=== PATIENT | female | born 1940 | race African-American/Black ===

== ENCOUNTER 2019-08-27 17:40 | Inpatient (IN) | payer OTHER ==
[~2019-08-27] VITALS: Ht 167.6 cm; Wt 92.6 kg
[2019-08-27] MEDS ORDERED: ADENOSINE 3 MG/ML 2ML VIAL IV ONE (20:00)
[2019-08-27 20:07] LABS: HEMATOCRIT. 36.8 % (36.0-48.0); HEMOGLOBIN. 12.3 g/dL (12.0-16.0); MEAN CORPUSCULAR HEMOGLOBIN 29.9 pg (28.0-32.0); MEAN CORPUSCULAR VOLUME 89.2 fL (81.0-99.0); MEAN PLATELET VOLUME 9.7 fl (7.4-10.4); PLATELET 182 x1000/uL (130-400); RED BLOOD CELL COUNT 4.13 mill/uL (4.2-5.4); RED CELL DISTRIBUTION WIDTH 13.8 % (11.6-14.6)
[2019-08-27 20:13] LABS: CHLORIDE 101 mEq/L (98-107)
[2019-08-27 20:26] LABS: PLATELET ESTIMATE NORMAL
[2019-08-27] MEDS ORDERED: FUROSEMIDE 40MG/4ML VIAL IVP ONE (20:45)
[2019-08-28] VITALS (18 sets, daily range): BP systolic 137–184; BP diastolic 67–119
[2019-08-28] MEDS ORDERED: AMIODARONE HCL 150 MG in DEXT 5% WATER 100 ML IV SCH (04:30)
[2019-08-28] MEDS ORDERED: AMIODARONE HCL 900 MG in DEXT 5% WATER 500 ML IV SCH (05:00)
[2019-08-28] MEDS ORDERED: ONDANSETRON HCL 4MG/2ML INJ IV PRN (07:45)
[2019-08-28] MEDS ORDERED: IPRATROPIUM/ALBUTEROL 0.5-3(2.5)MG/3ML NEB HHN PRN (07:45)
[2019-08-28] MEDS ORDERED: MAGNESIUM/ALUMINUM HYDROXIDE/SIMETHICONE 30ML UDC PO PRN (07:45)
[2019-08-28] MEDS ORDERED: ENOXAPARIN 40MG/0.4ML SYR SUBCUT SCH (07:45)
[2019-08-28] MEDS ORDERED: LORAZEPAM 2MG/ML CPJ IV PRN (07:45)
[2019-08-28] MEDS ORDERED: GUAIFENESIN 200MG/10ML SUGAR FREE UDC PO PRN (07:45)
[2019-08-28] MEDS ORDERED: DIPHENHYDRAMINE 50MG/ML VIAL IV PRN (07:45)
[2019-08-28] MEDS ORDERED: HYDROCODONE/ACETAMINOPHEN 10/325MG TABLET PO PRN (07:45)
[2019-08-28] MEDS ORDERED: DOCUSATE SODIUM 100MG CAPSULE PO PRN (07:45)
[2019-08-28] MEDS ORDERED: ACETAMINOPHEN 325MG TABLET PO PRN (07:45)
[2019-08-28 09:41] LABS: T4 FREE 1.25 ng/dL (0.76-1.46)
[2019-08-28] MEDS ORDERED: ENOXAPARIN 100MG/ML SYR SUBCUT SCH (10:30)
[2019-08-28] MEDS ORDERED: CEFTRIAXONE 1,000 MG in DEXTROSE 5% WATER 50 ML IV NR (13:15)
[2019-08-28] MEDS ORDERED: CEFTRIAXONE SODIUM 1 G/VIAL ONE (13:26)
[2019-08-28] MEDS: CLONIDINE 0.1MG TABLET PO PRN ×2 (13:32→23:48)
[2019-08-28] MEDS ORDERED: MORPHINE SULFATE 2 MG/ML CPJ (NOT FOR IM USE) IV PRN (15:48)
[2019-08-28 18:23] LABS: CREATINE KINASE MB FRACTION 1.2 ng/mL (0.5-3.6)
[2019-08-28] MEDS: HYDRALAZINE 20MG/ML VIAL IV PRN (20:46)
[2019-08-28] MEDS: SODIUM CHLORIDE 0.9% INJ 3ML FLUSH IVF SCH (22:00)
[2019-08-29] VITALS (24 sets, daily range): BP systolic 126–177; BP diastolic 59–110
[2019-08-29 02:24] LABS: CREATINE KINASE MB FRACTION 1.1 ng/mL (0.5-3.6)
[2019-08-29] MEDS: HYDRALAZINE 20MG/ML VIAL IV PRN ×2 (03:38→09:25)
[2019-08-29 05:54] LABS: CHLORIDE 106 mEq/L (98-107)
[2019-08-29 05:56] LABS: INR 1.1; PROTHROMBIN TIME 12.3 sec (9.6-11.0)
[2019-08-29 06:06] LABS: HEMATOCRIT. 33.5 % (36.0-48.0); MEAN CORPUSCULAR HEMOGLOBIN 29.2 pg (28.0-32.0); MEAN CORPUSCULAR VOLUME 89.2 fL (81.0-99.0); MEAN PLATELET VOLUME 10.9 fl (7.4-10.4); PLATELET 182 x1000/uL (130-400); RED BLOOD CELL COUNT 3.75 mill/uL (4.2-5.4); RED CELL DISTRIBUTION WIDTH 13.8 % (11.6-14.6)
[2019-08-29] MEDS: SODIUM CHLORIDE 0.9% INJ 3ML FLUSH IVF SCH ×3 (06:15→21:29)
[2019-08-29] MEDS ORDERED: ENOXAPARIN 100MG/ML SYR SUBCUT SCH (09:00)
[2019-08-29] MEDS: CLONIDINE 0.1MG TABLET PO PRN (09:25)
[2019-08-29 09:33] LABS: NUCLEATED RED BLOOD CELLS 1 /100 WBC; PLATELET ESTIMATE NORMAL
[2019-08-29] MEDS ORDERED: CEFTRIAXONE 1 G PREMIX 50 ML IV SCH ×2 (13:00→13:30)
[2019-08-29] MEDS ORDERED: METOPROLOL TARTRATE 5MG/5ML VIAL IV SCH (18:30)
[2019-08-29] MEDS ORDERED: DIGOXIN 500MCG/2ML AMP IV SCH (18:30)
[2019-08-29] MEDS ORDERED: METOPROLOL TARTRATE 25MG TABLET PO SCH (21:00)
[2019-08-30 02:20] VITALS: BP 158/78
== END 2019-08-30 02:26 | disposition short-term general hospital (02) | DRG 682 ==
LOC: ER 17:40 → EDBEDREQ 22:12 → EDBEDREQSVC 22:12 → EDBEDREQTM 22:12 → CVICU 08-28 04:04 → EDBEDREQDT 08-28 04:04 → EDBEDREQTM 08-28 04:04 → EDBEDREQSVC 08-28 04:04 → EDBEDREQ 08-28 04:06 → ENRESERV 08-28 17:55 → 5WST 08-29 11:10
PROVIDERS: ADMIT Internal Medicine; ATTEND Internal Medicine
DX: N17.0 Acute kidney failure with tubular necrosis (principal); J96.00 Acute respiratory failure, unspecified whether with hypoxia or hypercapnia; I13.0 Hypertensive heart and chronic kidney disease with heart failure and stage 1 through stage 4 chronic kidney disease, or unspecified chronic kidney disease; E46 Unspecified protein-calorie malnutrition; I25.10 Atherosclerotic heart disease of native coronary artery without angina pectoris; I48.91 Unspecified atrial fibrillation; I50.9 Heart failure, unspecified; N18.9 Chronic kidney disease, unspecified; E11.22 Type 2 diabetes mellitus with diabetic chronic kidney disease; Z68.32 Body mass index [BMI] 32.0-32.9, adult; Z87.440 Personal history of urinary (tract) infections
CPT/HCPCS: 36415; 71045; 80048; 80053; 80061; 82550; 82553; 83036; 83605; 83735; 83880; 84145; 84439; 84443; 84484; 85025; 85379; 93005; 93306; 93970; 99291; J0153; J0282; J0360; J0696; J1160; J1650; J1940; J2270; J7060